=== PATIENT | female | born 1930 | race Caucasian/White ===

== ENCOUNTER → 2019-03-24 | Emergency (ER) | payer OTHER ==
[~2019-03-24] MED LIST: ACETAMINOPHEN650 M1 PO; ATENOLOL50 MG PO; CHLORTHALIDONE25 MG PO; FUROSEMIDE40 MG PO; MIRALAX17 GM PO; PERPHENAZINE4 MG PO; PLAVIX75 MG PO; POTASSIUM CHLO20 ME1; VITAMIN D1000 UNI1 PO
== END | disposition left against medical advice (07) ==
LOC: ER 22:11
DX: R07.89 Other chest pain (principal)